=== PATIENT | female | born 1960 | race Caucasian/White ===

== ENCOUNTER → 2017-02-06 | Outpatient (CLI) | payer OTHER ==
[~2017-02-06] MED LIST: /AMIT100TA PO; ALBU17IN INH; ALPR2TAB3 PO; BENZ200C PO; CYMBALTA PO; DICY20TA PO; FLUD0.1T PO; FOSA70TA PO; LOMOTA PO; LYRI75CA PO; NADO20TA2 PO; NITR4TASL SL; PRIL40CA PO; PROM25SU5 PO; SPIR50TA2 PO; SPIRIVA INH; VERA27.5; VITA400T PO; ZANA6CAP PO
--- NOTE | 2017-02-06 15:41 | REP ---
Clinical: Pain with recent Trauma. Technique: AP, lateral, bilateral oblique views. Findings: Age-related degenerative changes are appreciated primarily involving the interphalangeal joints. The osseous structures and joint spaces are otherwise intact and normal. There is no evidence for acute fracture or dislocation. Surrounding soft tissues are unremarkable. No subcutaneous emphysema or radiodense foreign body. Impression: Age-related degenerative changes. No acute fracture or dislocation appreciated.
== END ==
LOC: M CLY 14:57
PROVIDERS: ATTEND Family Medicine
DX: S69.91XA Unspecified injury of right wrist, hand and finger(s), initial encounter (principal); X58.XXXA Exposure to other specified factors, initial encounter; Y92.89 Other specified places as the place of occurrence of the external cause